=== PATIENT | male | born 1965 | race Caucasian/White ===

== ENCOUNTER 2018-10-18 09:45 | Emergency (ER) | payer MEDICAID ==
[2018-10-18] MEDS ORDERED: OXYCODONE-ACETAMINOPHEN 5-325 MG TABLET PO ONE (10:42)
--- NOTE | 2018-10-18 10:43 | ER Document Report ---
ED Medical Screen (RME) - General Chief Complaint: Groin Pain Stated Complaint: GROIN INJURY Time Seen by Provider: 10/18/18 10:42 Mode of Arrival: Ambulatory Information source: Patient Notes: 52-year-old male with hypertension presents with left inguinal and left testicular pain that started 1 day prior to arrival after he threw a piece of a fence. Patient was seen at [facility] first and advised to come to the emergency department. I have greeted and performed a rapid initial assessment of this patient. A comprehensive ED assessment and evaluation of the patient, analysis of test results and completion of medical decision making process we will be contacted by additional ED providers. PHYSICAL EXAMINATION: Vital signs reviewed GENERAL: Well-appearing, well-nourished and in no acute distress. LUNGS: No respiratory distress Musculoskeletal: Normal range of motion NEUROLOGICAL: Normal speech, normal gait. PSYCH: Normal mood, normal affect. SKIN: Warm, Dry, normal turgor, no rashes or lesions noted. TRAVEL OUTSIDE OF THE [place] IN LAST 30 DAYS: No - Related Data Allergies/Adverse Reactions: Penicillins Allergy (Verified 10/18/18 09:46) Past Medical History - Social History Chew tobacco use (# tins/day): No Frequency of alcohol use: Occasional Drug Abuse: None Renal/ Medical History: Denies: Hx Peritoneal Dialysis Physical Exam - Vital signs Vitals: Temp Pulse Resp BP Pulse Ox 97.6 F 95 18 146/93 H 96 10/18/18 09:54 10/18/18 09:54 10/18/18 09:54 10/18/18 09:54 10/18/18 09:54 Course - Vital Signs Vital signs: Temp Pulse Resp BP Pulse Ox 97.6 F 95 18 146/93 H 96 10/18/18 09:54 10/18/18 09:54 10/18/18 09:54 10/18/18 09:54 10/18/18 09:54
--- NOTE | 2018-10-18 11:57 | RADIOLOGY REPORT (SQ) ---
EXAM DESCRIPTION: U/S SCROTUM W/DOPPLER COMPLETED DATE/TIME: 10/18/2018 11:21 am REASON FOR STUDY: inguinal pain buldge COMPARISON: None. TECHNIQUE: Static and realtime perla scale imaging of the scrotum and testes. Selected color Doppler and spectral images recorded to document blood flow. LIMITATIONS: None. FINDINGS: RIGHT: TESTICLE: Normal size. Normal echotexture. Normal blood flow. No mass. EPIDIDYMIS: Normal. HYDROCELE OR VARICOCELE: No. HERNIA OR EXTRA-TESTICULAR MASS: No. OTHER: No other significant finding. LEFT: TESTICLE: Normal size. Normal echotexture. Normal blood flow. No mass. EPIDIDYMIS: Normal. HYDROCELE OR VARICOCELE: No. HERNIA OR EXTRA-TESTICULAR MASS: No. OTHER: There are dilated vessels in the left groin but no evidence of hernia. IMPRESSION: Dilated vessels in the left groin. No evidence mass or hernia. TECHNICAL DOCUMENTATION: JOB ID: [id number] [employer]- All Rights Reserved Reading location - IP/workstation name: [email or web address]
--- NOTE | 2018-10-18 12:13 | ER Document Report ---
ED GI/ - General Chief Complaint: Groin Pain Stated Complaint: GROIN INJURY Time Seen by Provider: 10/18/18 10:42 Mode of Arrival: Ambulatory Notes: Patient is complaining of pain in his left testicle since yesterday. He said he was doing some heavy lifting and picked up a cement block through it and had immediate pain in the left testicle. He did not hit the testicle or fall on it, just lifting a heavy object. Is been painful ever since. Patient feels that the left testicle is swollen. He has not seen any blood from the urethral or in the urine. Has not had any fever. Has never had previous problems with the testicle. No history of any hernias. Went to a local urgent care that recommended he come here for further evaluation. TRAVEL OUTSIDE OF THE [place] IN LAST 30 DAYS: No - Related Data Allergies/Adverse Reactions: Penicillins Allergy (Verified 10/18/18 09:46) Past Medical History - General Information source: Patient - Social History Smoking Status: Current Every Day Smoker Chew tobacco use (# tins/day): No Frequency of alcohol use: Occasional Drug Abuse: None Family History: Reviewed & Not Pertinent Patient has suicidal ideation: No Patient has homicidal ideation: No - Past Medical History Cardiac Medical History: Reports: Hx Hypertension GI Medical History: Reports: Hx Gastroesophageal Reflux Disease Review of Systems - Review of Systems Notes: REVIEW OF SYSTEMS: CONSTITUTIONAL : Denies fever. EENT: Denies eye, ear, nose or mouth or throat pain or other symptoms. CARDIOVASCULAR: Denies chest pain. RESPIRATORY: Denies cough, chest congestion, or shortness of breath. GASTROINTESTINAL: Denies abdominal pain or nausea, vomiting, or diarrhea. GENITOURINARY: See HPI. Denies difficulty or painful urinating, urinary frequency, blood in urine. MUSCULOSKELETAL: Denies back or neck pain. Denies joint pain or swelling. SKIN: Denies rash or skin lesions. NEUROLOGICAL: Denies LOC or altered mental status. Denies headache. Denies sensory loss or motor deficits. ALL OTHER SYSTEMS REVIEWED AND NEGATIVE. Physical Exam - Vital signs Vitals: Temp Pulse Resp BP Pulse Ox 97.6 F 95 18 146/93 H 96 10/18/18 09:54 10/18/18 09:54 10/18/18 09:54 10/18/18 09:54 10/18/18 09:54 Interpretation: Normal Notes: PHYSICAL EXAMINATION: GENERAL: Well-appearing, in no acute distress. HEAD: Atraumatic, normocephalic. NECK: Normal range of motion, supple. LUNGS: Breath sounds clear and equal bilaterally. HEART: Regular rate and rhythm without murmurs. ABDOMEN: Soft, nontender. Not really tender at all in the abdomen. No guarding or rebound. No masses. No swelling of the abdomen as would be expected with a hernia. Genitourinary: Patient's left testicle does not appear to be swollen to me. It is diffusely tender. The epididymis is not tender. Some tenderness up in the region of the cord proximally. Says it hurts into his lower left abdomen, but it is not tender there to my examination. BACK: No tenderness throughout entire back. EXTREMITIES: Normal range of motion without pain. NEUROLOGICAL: Normal speech, normal gait. Normal sensory, motor, and reflex exams. Awake, alert, and oriented x3. Cranial nerves normal. PSYCH: Normal mood, normal affect. SKIN: Warm, dry, no rashes. Course - Re-evaluation Re-evalutation: 10/18/18 12:31 Ultrasound is essentially normal. - Vital Signs Vital signs: Temp Pulse Resp BP Pulse Ox 97.6 F 95 18 146/93 H 96 10/18/18 09:54 10/18/18 09:54 10/18/18 09:54 10/18/18 09:54 10/18/18 09:54 - Diagnostic Test Radiology reviewed: Image reviewed, Reports reviewed - Ultrasound is read as essentially normal. No torsion evident. Patient has some dilated blood vessels in the left groin, of uncertain significance. Not palpable to my exam. Remainder of ultrasound is normal bilaterally. Discharge - Discharge Clinical Impression: Left testicular pain, Strain of left inguinal muscle Condition: Stable Disposition: HOME, SELF-CARE Additional Instructions: Testicular Pain Sometimes we can't prove the exact cause of testicle pain. Pain in the testicle can be caused by many different problems, including viral infections of the testicle, urinary tract infection, kidney stones, inflammation of the epididymis (the sac behind the testicle), hernia, dilated veins in the scrotum, or subtle injury. The most serious causes of testicular pain are tumor or twisting of the testicle. An ultrasound exam often shows what's wrong. When the initial testing doesn't show a cause for the pain, we usually refer to a urologist. Rest. Gentle warmth may help with symptoms. It's usually helpful to wear underwear that gives good support to the testicles ("briefs" instead of "boxers"). Call the doctor or return if there is sudden worsening of pain, fever, vomiting, testicle swelling, or discoloration of the scrotum. Muscle Strain You have strained a muscle -- torn the fibers within the muscle. This often occurs with strenuous exertion, or during an injury that suddenly stretches the muscle. The seriousness of a strain varies. Some strains heal within days, others cause problems for months. X-rays cannot show a muscle strain. X-rays are taken only if symptoms suggest that a fracture could be present. The usual treatment of a muscle strain is rest and ice packs. Sometimes, a sling, splint, or crutches may be necessary to rest the muscle. The muscle can be used again once pain subsides. Severe strains require a special exercise and stretching program to prevent permanent stiffness and disability. Your doctor will advise you if this will be necessary. Call the doctor immediately if pain or swelling becomes severe, or if numbness or discoloration develop. Your examination does not reveal any serious conditions such as loss of blood supply to your testicle. No evidence of hernia. FOLLOW-UP CARE: If you have been referred to a physician for follow-up care, call the physicians office for an appointment as you were instructed or within the next two days. If you experience worsening or a significant change in your symptoms, notify the physician immediately or return to the Emergency Department at any time for re-evaluation. Prescriptions: Oxycodone HCl/Acetaminophen [Percocet 5-325 mg Tablet] 1 - 2 tab PO Q4H PRN #15 tablet PRN Reason: Referrals: [facility] [NO LOCAL MD] - Follow up as needed
[2018-10-18 12:46] VITALS: BP 143/92
== END 2018-10-18 12:50 | disposition home or self-care (01) ==
LOC: ER 09:45
DX: S39.011A Strain of muscle, fascia and tendon of abdomen, initial encounter (principal); N50.812 Left testicular pain; X58.XXXA Exposure to other specified factors, initial encounter; X50.0XXA Overexertion from strenuous movement or load, initial encounter; Y93.89 Activity, other specified; I99.8 Other disorder of circulatory system; I10 Essential (primary) hypertension; F17.200 Nicotine dependence, unspecified, uncomplicated; Z88.0 Allergy status to penicillin
CPT/HCPCS: 76870; 93976; 99284